=== PATIENT | male | born 1980 | race Asian ===

== ENCOUNTER 2018-12-04 14:26 | Outpatient (CLI) | payer OTHER | END 2018-12-04 14:27 | disposition home or self-care (01) | LOC: SC 14:26 | PROVIDERS: ATTEND Internal Medicine Pulmonary Disease | DX: R06.81 Apnea, not elsewhere classified (principal); G47.10 Hypersomnia, unspecified; R41.89 Other symptoms and signs involving cognitive functions and awareness; R06.83 Snoring; G47.8 Other sleep disorders; E66.9 Obesity, unspecified; Z68.35 Body mass index [BMI] 35.0-35.9, adult | CPT/HCPCS: 99203; 99212 ==

== ENCOUNTER 2018-12-15 19:31 | Outpatient (CLI) | payer OTHER | END 2018-12-15 19:32 | disposition home or self-care (01) | LOC: SC 19:31 | PROVIDERS: ATTEND Internal Medicine Pulmonary Disease | DX: G47.33 Obstructive sleep apnea (adult) (pediatric) (principal) | CPT/HCPCS: 95811 ==

== ENCOUNTER 2018-12-25 13:31 | Outpatient (CLI) | payer OTHER | END 2018-12-25 13:32 | disposition home or self-care (01) | LOC: SC 13:31 | PROVIDERS: ATTEND Internal Medicine Pulmonary Disease | DX: G47.33 Obstructive sleep apnea (adult) (pediatric) (principal) | CPT/HCPCS: 99212; 99213 ==

== ENCOUNTER 2019-02-20 15:13 | Outpatient (CLI) | payer OTHER | END 2019-02-20 15:14 | disposition home or self-care (01) | LOC: SC 15:13 | PROVIDERS: ATTEND Internal Medicine Pulmonary Disease | DX: G47.33 Obstructive sleep apnea (adult) (pediatric) (principal) | CPT/HCPCS: 99212; 99213 ==

== ENCOUNTER 2019-04-02 11:05 | Outpatient (CLI) | payer OTHER ==
[2019-04-02 11:34] VITALS: BP 99/55
--- NOTE | 2019-04-02 11:34 | CONSULTATION NOTE ---
Information from patient questionnaire entered by Lakshmi Fan. I have reviewed and concur with the information entered by Lakshmi Fan. This document represents the service I personally performed and the decisions made by me, Cherry Watt MD, [facility]. - History of Present Illness HPI: EMILIE BOB was diagnosed to have very severe, AHI 80.0, obstructive sleep apnea-hypopnea syndrome and returned today for CPAP therapy one month follow-up. The patient went to [facility] for the equipment and was fitted with a nasal mask (he also has a Respironics DreamWear nasal cushion mask). He reports using the device nightly and all through the night. The compliance report shows usage in 28 nights out of the past 30 nights, averaging 5.7 hours a night. He complained of no particular problem with the device such as soreness on the face, dry nose, epistaxis, nasal congestion or headache. He does not use the heated humidifier. He thinks that the pressure of 4 - 8 cmH2O is comfortable. On the CPAP therapy he notices improvement in his sleep quality, and that he wakes up feeling fresher in the morning and more awake/alert during the day. The [place] Sleepiness Scale score 7. His notices no snore at all. The average residual AHI is 2.2; and average time in large leak per day is 4 seconds. The 90th percentile pressure is 7.4 cmH2O. Equipment obtained from: [facility] - Compliance Data Reviewed with Patient Average duration of nightly device use: 5 hours 41 mins Compliance rate % (4+hrs/night over past 30 nights): 76.7 Current pressure setting (cmH2O): 4-8 Average residual AHI: 2.2 Average large leak: 4 seconds - Subjective Missed days of use due to: other (He fell asleep before he could put the mask on.) Observed to snore while using device: No Current pressure setting perceived as: comfortable On therapy, patient reports: sleeping better, awakening more refreshed, being more awake and alert during the day, more rested overall Initial [place] Sleepiness Scale score: 22 Current [place] Sleepiness Scale score: 7 - Review of Systems Review of systems same as previous: Yes - Allergies/Medications Allergies and home medications reviewed: Yes - Physical Examination Blood Pressure: 99/55 Cuff size: regular Heart Rate: 80 O2 Saturation: 99 Height: 5 ft 5.25 in Weight (kg): 99.337 kg Weight change since last visit: - 2 lbs Body Mass Index: 36.1 BMI Classification: Class 2 - Impression 1. Obstructive Sleep Apnea-Hypopnea Syndrome, very severe, with good treatment compliance and good apnea control. On CPAP therapy, there is improved sleep quality and continues to feel more rested overall. Patient's apnea severity and rationale for treatment to reduce apnea, improve sleep quality and reduce cardiovascular and cerebrovascular events was reviewed. The current pressure setting is comfortable and effective. No adjustment is necessary today. - Plan Patient Coaching: [ Since patient's apnea is more severe in the supine position, advised to avoid supine sleep when unable to use the device because of illness or when no electricity.] [ Instructed to keep current mask when replaced to keep as a spare mask.] [ Explained that weight loss or gain may change the CPAP requirement.] [ Praised for weight loss.] [ Advised to lose weight.] [ Smoking cessation.] [ Discussed symptoms to report to adjust PAP pressure. ] [ ] Plan: Continue autoCPAP set at 4 - 8 cm H2O. Notify me if snoring with the mask or feeling that the pressure is too much or too little. Try other masks. Return for follow-up in one year or earlier if there are problems. I spent 100% of this 20 minute visit face to face with the patient with greater than 50% of this was spent time counseling the patient and coordination of care.
== END 2019-04-02 11:06 | disposition home or self-care (01) ==
LOC: SC 11:05
PROVIDERS: ATTEND Internal Medicine Pulmonary Disease
DX: G47.33 Obstructive sleep apnea (adult) (pediatric) (principal)
CPT/HCPCS: 99212; 99213

== ENCOUNTER 2020-06-26 11:44 | Emergency (ER) | payer OTHER ==
[2020-06-26] MEDS ORDERED: predniSONE 20 MG TABLET PO STA (12:39)
--- NOTE | 2020-06-26 12:42 | ED Physician Documentation ---
History of Present Illness - Stated complaint Stated Complaint: LT TOE PX - GOUT - Chief complaint Chief Complaint: Ext Problem - History obtained from History obtained from: Patient - History of Present Illness Timing: Prior to arrival, How many days ago (2) - Additonal information Additional information: 39-year-old male presents to the emergency department for acute left toe pain. He reports that about 3 years ago he was diagnosed with gout while on needed basis as he had joint pain and elevated uric acid. Intermittently since then he has used colchicine for his gout flares. This flare began 2 days ago and taping his typical doses of colchicine has not helped. He has mild joint swelling at the MCP of the left great toe but no erythema. He has had no falls or trauma. No fevers or red streaking. Review of Systems Constitutional: reports: Reviewed and negative Nose: reports: Reviewed and negative Throat: reports: Reviewed and negative Cardiac: reports: Reviewed and negative Respiratory: reports: Reviewed and negative GI: reports: Reviewed and negative : reports: Reviewed and negative Skin: reports: Reviewed and negative Musculoskeletal: reports: Joint pain, Joint swelling (left great toe at mcp). denies: Extremity pain, Extremity swelling Neurologic: reports: Reviewed and negative Psychiatric: reports: Reviewed and negative PD PAST MEDICAL HISTORY - Past Medical History Past Medical History: Yes Musculoskeletal: Osteoarthritis, Gout Other Past Medical History: Pt reports Tuesday night he began having L foot/big toe pain, reports it has progressively worsened. Pt reports taking ibuprofen and Colchicine with no relief. Pain bearing weight. Pt reports hx of gout - Past Surgical History Past Surgical History: No - Present Medications Home Medications: Ambulatory Orders Medication Instructions Recorded Confirmed predniSONE [Prednisone] 40 mg PO DAILY #8 tablet 06/26/20 - Allergies Allergies/Adverse Reactions: Allergies Allergy/AdvReac Type Severity Reaction Status Date / Time No Known Drug Allergies Allergy Verified 06/26/20 12:05 - Social History Does the pt smoke?: No Smoking Status: Never smoker Does the pt drink ETOH?: No Does the pt have substance abuse?: No - Immunizations Immunizations are current?: Yes PD ED PE NORMAL - General General: Alert and oriented X 3, No acute distress, Well developed/nourished - Cardiac Cardiac: RRR, No murmur - Respiratory Respiratory: No respiratory distress - Abdomen Abdomen: Normal bowel sounds, Non tender - Back Back: No CVA TTP - Derm Derm: Normal color, Warm and dry, No rash - Extremities Extremities: No deformity. No: No tenderness to palpate (tenderness at MCP of left great toe. mild swelling, no erythema. 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 He has mild swelling. He does report a history of gout and this is similar to previous gout flares also in the same joints. He has been taking colchicine without relief. Therefore we will institute a prednisone burst. First dose given today and to be followed by 4 additional days of 40 mg daily. I have advised him to follow-up closely with [employer] to consider longer-term suppressive therapy such as allopurinol. Without fevers or erythema my suspicion for an infectious etiology is low. Will defer imaging given the lack of trauma. However symptoms do not improve he will return to the emergency department for a second evaluation Departure - Departure Disposition: 01 Home, Self Care Clinical Impression: Toe pain, left, History of gout Condition: Stable Record reviewed to determine appropriate education?: Yes Instructions: ED Arthritis Gout Prescriptions: predniSONE [Prednisone] 40 mg PO DAILY #8 tablet Comments: It sounds like you are having another gout flare. We have given you your first dose of steroid here in the emergency department. Please fill the prescription for the steroids and begin taking tomorrow as directed. It is important to follow-up with [email or web address] and discuss if you should be on a longer term more suppressive therapy such as allopurinol. If the prednisone does not improve the pain, you have increased swelling, redness or any fevers please return to the emergency department for a second look
[2020-06-26 12:51] VITALS: BP 138/91
== END 2020-06-26 12:50 | disposition home or self-care (01) ==
LOC: ED 11:44
DX: M79.675 Pain in left toe(s) (principal); Z87.39 Personal history of other diseases of the musculoskeletal system and connective tissue
CPT/HCPCS: 99282; 99284; J7512

== ENCOUNTER 2024-02-10 14:38 | Outpatient (CLI) | payer OTHER ==
--- NOTE | 2024-02-10 16:32 | Sleep Patient Instructions ---
Sleep Center Visit Summary - Patient Visit Information Reason for Visit: Initial consultation - Patient Instructions Additional Instructions: You will continue with CPAP therapy with pressure changed to 6-10 cmH2O. A supply prescription will be updated with your DME. I have added a transfer of CPAP supplier who should call you to set you up with supplies soon. We encourage you to continue to try to lose weight. Please follow up with the sleep care office in 1 year. - Clinic Information Contact: [facility] [address] [place] [address] [email or web address] T: [phone]
--- NOTE | 2024-02-10 16:38 | SLEEP CARE CONSULTATION ---
Information from patient questionnaire entered by Theodora Sandra. I have reviewed and concur with the information entered by Theodora Sandra. This document represents the service I personally performed and the decisions made by me, Gerri Salazar ARNP. History of Present Illness Service Date and Time: 02/10/2024 1438 Reason for Visit: New patient, Previously diagnosed sleep apnea Chief Complaint: reports: Other (UPDATE SUPPLIES) Usual bedtime: 2200 Time it takes to fall asleep: 5-10MINS Snores at night: No Observed to quit breathing while asleep: No Sleeps alone due to snoring: No Number of times waking at night: 0 Reasons for waking at night: reports: Bathroom Toss, Turn, or Twitch while sleeping: No Recalls having dreams: Yes Usually gets out of bed at: 9821-0433 Feels refreshed in the morning: Yes Morning headache: No Sleepy or fatigued during the day: No Ever fallen asleep while driving: No Takes day naps: No Dreams during day naps: No Prior sleep studies: Yes Year and Where: 2019 - [facility] Additional HPI information: EMILIE BOB was previously diagnosed to have very severe, AHI 80, obstructive sleep apnea-hypopnea syndrome in sleep study dated 12/15/2018 and comes in today to re-establish care for CPAP therapy. - Parasomnia Symptoms Ever been unable to move upon waking from sleep: No Walks in sleep: No Talks in sleep: Yes Ever acted out dreams in sleep: No Ever felt weak in the knees when startled or emotional: No Bothered by creepy, crawly, restless sensations in legs: No Problems with memory or concentration: No CPAP Compliance Data - Data Reviewed with Patient Average duration of nightly device use: 6 hours 42 minutes Compliance rate %: 97.8 (90/90 days used; 11/12/2023-02/09/2024) Current pressure setting (cmH2O): 4-20 (avg 9.8) Average residual AHI: 1 Central apnea: 0 Obstructive apnea: 0.3 Hypopnea: 0.7 Average large leak: 35 secs Compliance data discussion: He has a Dreamstation, recertified. He has been using [employer] for his supplies. He is using a nasal mask, over the nose, Respironics mask. He is in need of supplies. Subjective Initial [place] Sleepiness Scale score: 22 (in 2019) Current [place] Sleepiness Scale score: 10 (02/10/24) Past Medical History Past Medical History: reports: Arthritis, Gout Social History The patient's occupation is a [employer]. Patient is and lives in [place]. Have you smoked in the past 12 months: No Alcohol use: Yes Alcohol amount and frequency: BEERS ON OCCASION Caffeine use: Yes Caffeine amount and frequency: 1 CUP COFFEE PER DAY Family History Family history of sleep disordered breathing: Yes Family Hx Sleep Apnea: Sibling: Sleep apnea - Treated Allergies and Home Medications Known drug allergies: No Drug allergies reviewed: Yes Home medication list reviewed: Yes (as listed) Allergy and home medication list: Allergies No Known Drug Allergies Allergy (Verified 02/08/24 11:56) Home Medications Medication Instructions Recorded Confirmed Last Taken Type Cholecalciferol (Vitamin D3) See Rx Instructions .ROUTE .COMPLEX 02/10/24 02/10/24 Unknown History [Vitamin D3] Fluticasone [Flonase] See Rx Instructions .ROUTE .COMPLEX 02/10/24 02/10/24 Unknown History Loratadine See Rx Instructions .ROUTE .COMPLEX 02/10/24 02/10/24 Unknown History Multivitamin See Rx Instructions .ROUTE .COMPLEX 02/10/24 02/10/24 Unknown History Review of Systems Weight gain over past 5 years: 20 Weight loss over past 5 years: 30 Cardiovascular: denies: high blood pressure Gastrointestinal: denies: heartburn Neurological: denies: headaches Psychiatric: denies: anxiety, depression Ear/Nose/Throat: denies: tonsillectomy Musculoskeletal: reports: joint pain Physical Exam Vital signs obtained and entered by: THEODORA Wilcox MA Blood Pressure: 130/78 (RIGHT ARM) Cuff size: long Heart Rate: 65 O2 Saturation: 99 Height: 5 ft 5 in Weight: 201 lb 6.4 oz Body Mass Index: 33.5 BMI Classification: Obese Neck circumference: 16 Heart: regular rate and rhythm Lungs: clear bilaterally Impression and Plan 1. Obstructive Sleep Apnea-Hypopnea Syndrome, very severe, with good treatment compliance and good apnea control. On CPAP therapy, the patient has better sleep quality and is more rested overall. He really likes his CPAP pressure at 6 cmH2O. After downloading his data it shows setting of 4-20 cmH2O. He uses an average pressure of 9.9 cmH2O according to the data on his machine. I will have the CPAP pressure adjusted to 6-10 cmH2O. He is in need of supplies. He is going to be transferred to a new port in [facility]. He will probably need to choose a different DME supplier who can ship internationally. We will set him also up with supplies. He can follow-up again in 1 year or as able. Patient's apnea severity and rationale for treatment to reduce apnea, improve sleep quality and reduce cardiovascular and cerebrovascular events was reviewed. 2. Obesity, unspecified. Currently patients BMI is 33.5. Obesity increases the risk of apnea, CPAP pressure requirements and overall health risks especially cardiovascular and diabetes. Thus patient is advised to lose weight. * Change auto CPAP pressure to 6-10 cmH2O * Transfer DME * Update supply prescription * Notify me if snoring with mask or feeling that the pressure is too much or too little * Attempt to lose weight * Call this office if any problems using CPAP * Return for follow up in 1 year, or sooner if concerns arise Counseling Topics: Weight loss health impact Prescriptions: Device supplies (with DME transfer) Follow up with Sleep Care in: 1 year Visit Type: In Office Time Spent with Patient (minutes): 33 Provider Statement: I spent 100% of the Face to Face Visit with the patient with greater than 50% spent counseling the patient and coordination of care.
[2024-02-10 16:46] VITALS: BP 130/78; O2SAT 99
== END 2024-02-10 14:39 | disposition home or self-care (01) ==
LOC: SC 14:38
PROVIDERS: ATTEND Nurse Practitioner Family
DX: G47.33 Obstructive sleep apnea (adult) (pediatric) (principal); E66.9 Obesity, unspecified; Z68.33 Body mass index [BMI] 33.0-33.9, adult
CPT/HCPCS: 99203; 99212